=== PATIENT | female | born 1950 | race Caucasian/White ===

== ENCOUNTER 2016-11-12 13:41 | Emergency (ER) | payer MEDICARE ==
[~2016-11-12] VITALS: Ht 165.1 cm; Wt 94.3 kg
[2016-11-12 13:58] VITALS: BP_SYST 160
[2016-11-12 15:04] VITALS: BP_SYST 151
[2016-11-12 15:25] LABS: BILIRUBIN,URINE NEGATIVE (NEGATIVE); BLOOD, URINE 1+ (NEGATIVE); COLOR,URINE YELLOW (YELLOW); GLUCOSE,URINE NEGATIVE (NEGATIVE); KETONES,URINE NEGATIVE (NEGATIVE); LEUKOCYTE ESTERASE ,URINE 2+ (NEGATIVE); NITRITE, URINE NEGATIVE (NEGATIVE); PROTEIN URINE NEGATIVE (NEGATIVE); UROBILINOGEN,URINE 0.2 (0.2-1.0)
[2016-11-12 15:30] LABS: CLARITY/URINE SLIGHTLY HAZY (CLEAR)
[2016-11-12 15:42] LABS: BACTERIA,URINE FEW /HPF (None Seen); MUCUS,URINE None Seen /LPF (None Seen); RBC,URINE 0-3 /HPF (0-3)
== END 2016-11-12 15:04 | disposition home or self-care (01) ==
LOC: SED 13:41
DX: N39.0 Urinary tract infection, site not specified (principal); I10 Essential (primary) hypertension
CPT/HCPCS: 81000-TC; 87086; 99284

== ENCOUNTER 2017-09-16 21:21 | Emergency (ER) | payer MEDICARE ==
[~2017-09-16] VITALS: Ht 165.1 cm; Wt 93.4 kg
[2017-09-16 21:27] VITALS: BP_SYST 154
[2017-09-16 21:54] VITALS: BP_SYST 149
== END 2017-09-16 21:54 | disposition home or self-care (01) ==
LOC: SED 21:21
DX: H66.91 Otitis media, unspecified, right ear (principal); J45.909 Unspecified asthma, uncomplicated; R03.0 Elevated blood-pressure reading, without diagnosis of hypertension; I10 Essential (primary) hypertension
CPT/HCPCS: 99283

== ENCOUNTER 2018-10-24 18:03 | Emergency (ER) | payer OTHER, BC ==
[~2018-10-24] VITALS: Ht 165.1 cm; Wt 93.9 kg
[2018-10-24 18:05] VITALS: BP_SYST 146
== END 2018-10-24 20:20 | disposition left against medical advice (07) ==
LOC: SED 18:03
DX: M25.561 Pain in right knee (principal); M54.5 Low back pain; R10.9 Unspecified abdominal pain; Z53.21 Procedure and treatment not carried out due to patient leaving prior to being seen by health care provider